=== PATIENT | male | born 1955 | race Caucasian/White ===

== ENCOUNTER 2019-04-08 19:40 | Emergency (ER) | payer SELFPAY ==
[~2019-04-08] VITALS: Ht 188 cm; Wt 117.9 kg
[2019-04-08] MEDS ORDERED: DIPHENHYDRAMINE HCL 50 MG CAPSULE ONE (20:12)
[2019-04-08 20:30] VITALS: BP_SYST 133
[2019-04-08] MEDS ORDERED: LISI5TAB PO (22:29)
[2019-04-08] MEDS ORDERED: TAMS-11 PO (22:29)
[2019-04-08] MEDS ORDERED: LISI10TA5 PO (22:29)
[2019-04-08] MEDS ORDERED: METO25TA6 PO (22:29)
[2019-04-08] MEDS ORDERED: CLOP300T2 PO (22:29)
[2019-04-08] MEDS ORDERED: LIP10 PO (22:29)
== END 2019-04-08 22:31 | disposition left against medical advice (07) ==
LOC: SED 19:40
DX: T78.1XXA Other adverse food reactions, not elsewhere classified, initial encounter (principal); Z53.21 Procedure and treatment not carried out due to patient leaving prior to being seen by health care provider; X58.XXXA Exposure to other specified factors, initial encounter
CPT/HCPCS: 99281; Q0163